=== PATIENT | male | born 1950 | race Caucasian/White ===

== ENCOUNTER 2018-11-28 16:44 | Observation (INO) ==
[2018-11-28] MEDS ORDERED: hydrOXYzine pamoate 25 MG CAPSULE PO ONE (16:59)
[2018-11-28] MEDS ORDERED: Acetaminophen 325 MG TABLET PO ONE (16:59)
--- NOTE | 2018-11-28 16:59 | Emergency Department Note ---
Disposition Clinical Impression: Atrial fibrillation with rapid ventricular response Dyspnea Qualifiers: Dyspnea type: shortness of breath Qualified Code(s): R06.02 - Shortness of breath Disposition: Admitted As Inpatient Condition: Fair SOB HPI - General Chief Complaint: ED Shortness of Breath/Dyspnea Stated Complaint: chills, cant catch his breath Time Seen by Provider: 11/28/18 16:53 Source: patient Mode of arrival: private vehicle Limitations: no limitations Nursing Notes Reviewed: Yes Vital Signs Reviewed: Yes - History of Present Illness Patient relates 4 day or 2 he has had persistent shortness of breath. He describes this as being "a little short winded". Symptoms been worse with laying down. He states if he lays down he feels "like he is smothering". With this he has had some chills and occasional feeling hot. Reports some aches and headaches. He saw his family doctor this morning and was started on azithromycin. He has taken the first 2 tablets. He denies any cough with this. He states that mostly occasionally has "a little chest pain" At This Time. He Denies Any Lower Extremity Swelling or Edema nor Known History of CHF. He Has Not Been Having Diaphoresis or Nausea. Denies a New Jaw, Arm or Back Pain. States He Has Chronic Pain and Difficulty with His Left Arm with Some Cervical Disc Disease for Which She Is Scheduled for Surgery at [facility] This . He Has Been Taken off His Anticoagulants That He Relates he is on Because of His Heart Attacks. He Cannot Recall a History of Irregular Heart Beats. Pt Subjective Complaint: shortness of breath Onset (ago): day(s) Severity: moderate Consistency/Duration: intermittent Improves with: upright position Worsens with: lying flat Known history of: COPD Associated symptoms: Reports: orthopnea. Denies: chest pain, pain with inspiration, fever, cough, wheezing, sputum production, lower extremity pain, polyuria, polydipsia, parasthesias, palpitations, hemoptysis, diaphoresis, nausea/vomiting, syncope, abdominal pain, rash Treatment prior to arrival: other (Azithromycin) Sputum Amount: None - Related Data Home oxygen amount: none Home Medications Medication Instructions Recorded Confirmed Aspirin [Ecotrin] 325 mg PO DAILY 02/12/18 11/28/18 Atorvastatin [Lipitor] 40 mg PO HS 02/12/18 11/28/18 Tizanidine HCl [Zanaflex] 4 mg PO TID 02/12/18 11/28/18 Tramadol HCl [Ultram] 50 mg PO BID PRN 02/12/18 11/28/18 Previous Rx's Medication Instructions Recorded Azithromycin [Zithromax] 250 mg PO DAILY 4 Days #4 tablet 02/13/18 Metoprolol XL (24 HR) Succ [Toprol 12.5 mg PO DAILY 30 Days #15 02/13/18 Xl] tab.er.24h Warfarin [Coumadin] 3 mg PO DAILY 30 Days #30 tablet 02/13/18 predniSONE [PredniSONE] See Taper PO DAILY #15 tablet 02/13/18 Allergies Allergy/AdvReac Type Severity Reaction Status Date / Time levofloxacin [From Levaquin] Allergy Itching Verified 02/13/18 10:10 Penicillins Allergy Anaphylaxis Verified 02/12/18 22:05 All systems ED: reviewed and negative except as stated. Past Medical History - Past Medical History Attestation: Yes The following information was validated with the patient. Source: patient, nursing notes reviewed Medical history: Reports: COPD, coronary artery disease, hyperlipidemia, hypertension, myocardial infarction. Denies: atrial fibrillation Surgical history: Reports: angioplasty/stent Psychiatric history: Reports: no psych history - Social History Smoking Status: Former smoker Smokeless Tobacco Status: No Alcohol use: Reports: none Drug use: Reports: none Physical Exam - General Limitations: no limitations General appearance: alert, in no apparent distress, anxious - Head Head exam: atraumatic, normocephalic, normal inspection - Eye Eye exam: Present: normal appearance, PERRL, EOMI - ENT ENT exam: normal exam, normal oropharynx, mucous membranes moist - Neck Neck exam: Present: normal inspection, full ROM, trachea midline - Chest Chest inspection: Present: normal inspection, symmetric chest wall rise - Respiratory Respiratory exam: Present: normal lung sounds bilaterally. Absent: respiratory distress, wheezes, prolonged expiratory phase - Cardiovascular Cardiovascular exam: Present: regular rate, normal rhythm, normal heart sounds, other (Patient shortly after arrival has demonstrated atrial fibrillation with rapid ventricular response.). Absent: tachycardia - Abdominal Exam Abdominal exam: Present: soft, Non-Tender, normal bowel sounds. Absent: tenderness, distention, guarding, rebound, rigidity - Extremities Exam Extremities exam: Present: normal inspection, full ROM, normal capillary refill. Absent: tenderness, pedal edema, calf tenderness - Expanded Lower Extremity Exam Neurovascular/Tendon exam: Present: normal capillary refill. Absent: motor deficit, sensory deficit, tendon deficit Gait: observed and normal - Back Exam Back exam: Present: normal inspection, full ROM. Absent: tenderness - Neurological Exam Neurological exam: Present: alert, oriented X3 - Psychiatric Psychiatric exam: Present: normal affect, anxious - Skin Skin exam: Present: warm, dry, intact, normal color. Absent: cyanosis, diaphor esis, pallor Course Course Narrative: 1739: The patient has continued now in atrial fibrillation with rapid ventricular response. Actually does not tachycardia during blood draw but he is not settled down in his right and continues at 140-150 bpm. This likely is the cause of his feeling of dyspnea and "smothering with lying down". He nor family can recall a definite history of atrial fibrillation in the past. An IV is being established, additional labs are been ordered and he is written to receive a dose of Cardizem for rate control. 1809: Care has been discussed with Dr. Rodriguez. He is agreeable with continuation of some Cardizem, initiating Lovenox. Patient's heart rate has occasionally gotten to about 120s again and one more additional IV dose will be given as well as Cardizem LA [address] Rodriguez advises he will coordinate further care from the hospital floor. 1839: Patient has continued to rest comfortably. He is currently reverted to a sinus rhythm with a rate of 68. He is resting with a blood pressure 128/69 and an oxygen saturation of 99% on room air. States he has some of his chronic pain in his legs for which she takes tramadol. He has requested and has been given a 50 mg tablet. Vital Signs Temperature 97.3 F L 11/28/18 16:46 Pulse Rate 85 11/28/18 16:46 Respiratory Rate 18 11/28/18 16:46 Blood Pressure 173/90 11/28/18 16:46 O2 Sat by Pulse Oximetry 97 11/28/18 16:46 Temperature 97.3 F L 11/28/18 16:46 Pulse Rate 110 11/28/18 18:22 Respiratory Rate 16 11/28/18 18:22 Blood Pressure 114/90 11/28/18 18:22 O2 Sat by Pulse Oximetry 98 11/28/18 18:22 Oxygen Delivery Oxygen Delivery Room Air Shortness of Breath/Dyspnea - Differential Diagnosis Likely: acute exacerbation of chronic obstructive airways disease - Medical Records Medical records reviewed: Yes I reviewed the patient's medical records. The patient has completed echocardiogram, stress test and preoperative testing at [facility] in the last month for his upcoming cervical procedure. EKG from November 09 demonstrates a normal sinus rhythm with some inferior Q waves present. - Lab Data Lab results reviewed: Yes I reviewed the patient's lab results. Result diagrams: 11/28/18 17:28 11/28/18 17: Lab Results 11/28/18 11/28/18 11/28/18 Range/Units 17:28 17:28 17:28 WBC 9.4 (4.3-11.1) K/mcL RBC 3.89 L (4.19-5.50) M/mcL Hgb 13.6 (12.9-16.9) g/dL Hct 38.8 (37.5-50.1) % MCV 99.7 (83.0-100.0) fL MCH 35.0 H (28.0-33.3) pg MCHC 35.1 (31.6-35.5) g/dL RDW 11.5 (11.5-14.5) % Plt Count 310 (140-400) K/mcL MPV 9.3 L (9.4-12.4) fL Immature Gran % 0.3 (0-4) % Seg Neutrophils % 81.1 % Lymphocytes % 10.9 % Monocytes % 6.5 % Eosinophils % 0.6 % Basophils % 0.6 % Neutrophils # 7.6 (1.6-8.9) K/mcL Lymphocytes # 1.0 (0.6-4.6) K/mcL Monocytes # 0.6 (0.0-1.3) K/mcL Eosinophils # 0.1 (0.0-0.6) K/mcL Basophils # 0.1 (0.0-0.2) K/mcL PT 11.6 (9.4-12.1) Seconds INR 1.0 APTT 31.1 (26.0-36.0) Seconds Sodium 140 (136-145) mEq/L Potassium 3.8 (3.5-5.1) mEq/L Chloride 104 (98-107) mEq/L Carbon Dioxide 29 (23-29) mEq/L BUN 12 (8-23) mg/dL Creatinine 1.16 (0.70-1.30) mg/dL Est GFR ( Amer) > 60 (> 60) Est GFR (Non-Af Amer) > 60 (> 60) BUN/Creatinine Ratio 10 (6-26) Glucose 98 (70-105) mg/dL Calculated Osmolality 290 (280-300) Calcium 9.7 (8.6-10.3) mg/dL Troponin I < 0.03 (< 0.04) ng/mL B-Natriuretic Peptide (Less than 100) pg/mL 11/28/18 Range/Units 17:28 WBC (4.3-11.1) K/mcL RBC (4.19-5.50) M/mcL Hgb (12.9-16.9) g/dL Hct (37.5-50.1) % MCV (83.0-100.0) fL MCH (28.0-33.3) pg MCHC (31.6-35.5) g/dL RDW (11.5-14.5) % Plt Count (140-400) K/mcL MPV (9.4-12.4) fL Immature Gran % (0-4) % Seg Neutrophils % % Lymphocytes % % Monocytes % % Eosinophils % % Basophils % % Neutrophils # (1.6-8.9) K/mcL Lymphocytes # (0.6-4.6) K/mcL Monocytes # (0.0-1.3) K/mcL Eosinophils # (0.0-0.6) K/mcL Basophils # (0.0-0.2) K/mcL PT (9.4-12.1) Seconds INR APTT (26.0-36.0) Seconds Sodium (136-145) mEq/L Potassium (3.5-5.1) mEq/L Chloride (98-107) mEq/L Carbon Dioxide (23-29) mEq/L BUN (8-23) mg/dL Creatinine (0.70-1.30) mg/dL Est GFR ( Amer) (> 60) Est GFR (Non-Af Amer) (> 60) BUN/Creatinine Ratio (6-26) Glucose (70-105) mg/dL Calculated Osmolality (280-300) Calcium (8.6-10.3) mg/dL Troponin I (< 0.04) ng/mL B-Natriuretic Peptide 169 H (Less than 100) pg/mL - Radiology Data Radiology results reviewed: Yes I reviewed the patient's radiology results. Single view chest x-ray is performed. This does not demonstrate evidence for infiltrate, effusion, pneumothorax, foreign body or heart failure. Lungs are hyperexpanded consistent with known COPD. The cardiac silhouette is normal. I do not see abnormality to the osseous structures of the chest. This is on my interpretation. Impressions Chest X-Ray 11/28/18 16:59 IMPRESSION: No acute cardiopulmonary disease. D/ / Garcia Minor MD / Garcia Minor MD Interpreting Provider: Garcia Minor MD - EKG Data EKG attestation: Yes I reviewed and interpreted this EKG. EKG results narrative: Second EKG is performed at 6:41 PM. This shows a normal sinus rhythm with a rate of 69, axis of 84, CA interval of 135 and a QT/QTC of 447/479. There are no ST or T-wave changes to suggest ischemia or infarction. This is on my i nterpretation. EKG shows normal: Reports: QRS complexes Rate: Reports: tachycardia Rhythm: Reports: A.Fib (117) Kirby/QRS: Reports: right axis deviation Interpretation: Reports: no acute changes, nonspecific ST-T wave changes
[2018-11-28 17:37] LABS: Basophils # 0.1 K/mcL (0.0-0.2); Basophils % 0.6 %; Eosinophils # 0.1 K/mcL (0.0-0.6); Eosinophils % 0.6 %; Hematocrit 38.8 % (37.5-50.1); Hemoglobin 13.6 g/dL (12.9-16.9); Immature Granulocytes % 0.3 % (0-4); Lymphocytes % 10.9 %; Mean Corpuscular HGB Conc 35.1 g/dL (31.6-35.5); Mean Corpuscular Volume 99.7 fL (83.0-100.0); Mean Platelet Volume 9.3 fL (9.4-12.4); Monocytes # 0.6 K/mcL (0.0-1.3); Monocytes % 6.5 %; Neutrophils # 7.6 K/mcL (1.6-8.9); Platelet Count 310 K/mcL (140-400); Red Blood Count 3.89 M/mcL (4.19-5.50); Red Cell Distribution Width 11.5 % (11.5-14.5); Segmented Neutrophils % 81.1 %
[2018-11-28] MEDS ORDERED: 0.9 % Sodium Chloride 1,000 ML ONE (17:43)
[2018-11-28] MEDS ORDERED: 0.9 % Sodium Chloride 1,000 ML IVC SCH ×3 (17:45→22:27)
[2018-11-28 17:47] LABS: Prothrombin Time 11.6 Seconds (9.4-12.1)
[2018-11-28 17:49] LABS: Activated Partial Thrombo Time 31.1 Seconds (26.0-36.0)
[2018-11-28 17:56] LABS: BUN/Creatinine Ratio 10 (6-26); Blood Urea Nitrogen 12 mg/dL (8-23); Calcium 9.7 mg/dL (8.6-10.3); Carbon Dioxide 29 mEq/L (23-29); Chloride 104 mEq/L (98-107); Glucose 98 mg/dL (70-105); Osmolality,Calculated 290 (280-300); Potassium 3.8 mEq/L (3.5-5.1); Sodium 140 mEq/L (136-145); Troponin I < 0.03 ng/mL (< 0.04); eGFR For Non-African Americans > 60 (> 60)
[2018-11-28] MEDS ORDERED: *HR* Enoxaparin 80 MG/0.8 ML SYRINGE SQ SCH (18:15)
[2018-11-28] MEDS ORDERED: Diltiazem CD (24hr) 180 MG CAPSULE PO SCH (18:15)
[2018-11-28] MEDS ORDERED: traMADol 50 MG TABLET PO ONE (18:40)
[2018-11-28] MEDS ORDERED: Naloxone 0.4 MG/ML INJ IVP PRN ×2 (21:33→22:27)
[2018-11-28] MEDS ORDERED: traMADol 50 MG TABLET PO PRN ×3 (21:33→22:43)
[2018-11-28] MEDS ORDERED: tiZANidine 4 MG TABLET PO SCH (21:33)
[2018-11-28] MEDS ORDERED: Ibuprofen 600 MG TABLET PO ONE (22:27)
[2018-11-28] MEDS: tiZANidine 4 MG TABLET PO SCH (23:37)
[2018-11-28] MEDS: Gabapentin 400 MG CAPSULE PO SCH (23:37)
[2018-11-29] MEDS ORDERED: *HR* Enoxaparin 80 MG/0.8 ML SYRINGE SQ SCH ×2 (06:00)
[2018-11-29] MEDS ORDERED: Azithromycin 250 MG TABLET PO SCH ×2 (09:00)
[2018-11-29] MEDS ORDERED: Metoprolol XL (24 HR) Succ 25 MG TAB.ER.24H PO SCH ×2 (09:00)
[2018-11-29] MEDS ORDERED: tiZANidine 4 MG TABLET PO SCH (09:00)
[2018-11-29] MEDS ORDERED: Aspirin Enteric Coated 325 MG Tablet PO SCH ×2 (09:00)
[2018-11-29] MEDS ORDERED: Diltiazem CD (24hr) 180 MG CAPSULE PO SCH ×2 (09:00)
[2018-11-29] MEDS: Gabapentin 400 MG CAPSULE PO SCH (10:04)
[2018-11-29] MEDS: tiZANidine 4 MG TABLET PO SCH (10:04)
[2018-11-29 10:36] VITALS: BP 95/56
--- NOTE | 2018-11-29 12:50 | Internal Med History&Physical ---
Date of Encounter: 11/29/18 Time of Encounter: 11:20 Assessment and Plan (1) Atrial fibrillation with rapid ventricular response Current visit: Yes Status: Acute He has converted back to normal sinus rhythm. He is asymptomatic and wishes to be discharged home. Internal Medicine - H&P: HPI Chief complaint: Dyspnea, AF with RVR Admitted From: Emergency Dept Plans for Post Hospital Care: Home History of present illness: Mr. Muñoz is a 68 year old male who came to emergency room stating he had developed increasing dyspnea shortly after returning from his PCP office where he was diagnosed with URI. When dyspnea did not improve after a few hours he came to emergency room and was found to have AF with RVR. He was given Cardizem and [facility]. He had transient AF with RVR during an January 2018 hospitalization at [facility] for exacerbation of COPD. He was placed on Coumadin at the time and has been maintained on Coumadin since then. He stopped the Coumadin a few days ago in preparation for cervical spine surgery scheduled for 11/30/2018. Aspirin was also discontinued preoperatively. He is unaware of other episodes of fibrillation other than the present one and January 2018. Cardiovascular history is pertinent for hypertension and known VT in 2000 and 2017. He reports 4 stents were placed in 2000. A Regadenoson EST 11/02/2018 showed no ischemia on perfusion study and nondiagnostic changes on the EKG portion. He was cleared to proceed with cervical spine surgery. He reports occ asional "tightness" in his chest on exertion. He denies history of DVT or pulmonary emboli. An echocardiogram 02/13/2018 showed LVEF of 60-65%. No significant valvular abnormalities were noted. Atria were not enlarged. He states he feels back to his baseline now and wishes to be discharged home. Past Med Surg Social Fam HX - Past Medical History Medical history: COPD, coronary artery disease, hyperlipidemia, hypertension, m yocardial infarction Psychiatric history: no psych history - Past Surgical History Surgical History: angioplasty/stent - Social History Smoking Status: Former smoker Smokeless Tobacco Status: No Alcohol use: none Drug use: none - Family History Mother Hx Family Cardiac Disorders: Yes Internal Medicine - H&P: Meds Aspirin [Ecotrin] 325 mg PO DAILY 02/12/18 [History] Atorvastatin [Lipitor] 40 mg PO HS 02/12/18 [History] Tizanidine HCl [Zanaflex] 4 mg PO TID 02/12/18 [History] Tramadol HCl [Ultram] 50 mg PO BID PRN 02/12/18 [History] Azithromycin [Zithromax] 250 mg PO DAILY 4 Days #4 tablet 02/13/18 [Rx] Metoprolol XL (24 HR) Succ [Toprol Xl] 12.5 mg PO DAILY 30 Days #15 tab.er.24h 02/13/18 [Rx] Warfarin [Coumadin] 3 mg PO DAILY 30 Days #30 tablet 02/13/18 [Rx] predniSONE [PredniSONE] See Taper PO DAILY #15 tablet 02/13/18 [Rx] Allergy/AdvReac Type Severity Reaction Status Date / Time levofloxacin [From Levaquin] Allergy Itching Verified 11/28/18 21:48 Penicillins Allergy Anaphylaxis Verified 11/28/18 21:48 All Systems PM: A 10-system review of systems was performed and is negative for pertinent findings except as documented above in the HPI. Review of systems: Gen.: He states his weight has been stable for several months Cardiovascular: As per history of present illness Respiratory: He smoked from age [age] never up to one pack per day. He claims a diagnosis of COPD but is uncertain if PFTs been done. He does not use home oxygen. GI: He denies disorders of his liver gallbladder or exocrine pancreas : He denies hematuria dysuria kidney stones Neurologic: He denies large distribution strokes or seizures. Endocrine: He reports hyperlipidemia and occasional episodes of hypoglycemia. He denies diabetes or thyroid disease. Hematology/oncology: He denies blood disorders cancers or anemia Psychiatric: He denies anxiety depression or other mental health issues [place] skeletal: He has cervical spine arthritis with anticipated surgery scheduled for tomorrow as per history of present illness. 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 He denies other bone joint or muscle disorders. - Constitutional Vitals: Temp Pulse Resp BP Pulse Ox 98.1 F 57 16 95/56 96 11/29/18 10:35 11/29/18 10:35 11/29/18 10:35 11/29/18 10:35 11/29/18 10:35 Exam: Gen.: He is a well-developed lean male lying in bed who appears in no acute distress HEENT: Head is atraumatic and normocephalic. Eyes: EOMI. There is no scleral icterus. Mouth: Mucosa is moist. Neck: Supple and nontender. There is no thyromegaly or adenopathy noted. Heart: Regular without murmurs gallops or ectopics Lungs: No wheezes or crackles are heard. Abdomen: Soft and nontender. No masses or guarding are noted. Extremities: There is no edema of his ankles. He has minimal DJD changes of his hands. Neurologic: Mental status: He is talkative and a good historian. Cranial nerves: Smile is symmetric. Forehead wrinkles bilaterally. Tongue protrudes midline. EOMI. 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 The right arm pronates normally. There is no pronator drift. Cerebellar: Finger to nose is intact with right hand. Skin: Warm and dry Internal Med - H&P Results - Labs CBC & Chem 7: 11/28/18 17:28 11/28/18 17:28 Labs: Short CBC 11/28/18 Range/Units 17:28 WBC 9.4 (4.3-11.1) K/mcL Hgb 13.6 (12.9-16.9) g/dL Hct 38.8 (37.5-50.1) % Plt Count 310 (140-400) K/mcL Neutrophils # 7.6 (1.6-8.9) K/mcL BMP 11/28/18 17:28 Sodium 140 Potassium 3.8 Chloride 104 Carbon Dioxide 29 BUN 12 Creatinine 1.16 Glucose 98 Calcium 9.7 Cardiac Enzymes 11/28/18 Range/Units 17:28 Troponin I < 0.03 (< 0.04) ng/mL - Impressions ITS Impressions Chest X-Ray 11/28/18 16:59 IMPRESSION: No acute cardiopulmonary disease. D/ / 11/28/2018 17:32:45 Garcia Minor MD / joanne Interpreting Provider: Garcia Minor MD
--- NOTE | 2018-11-29 14:10 | Discharge Summary ---
Date of Encounter: 11/29/18 Time of Encounter: 11:20 - Discharge Diagnosis (1) Atrial fibrillation with rapid ventricular response Priority: Primary Status: Acute Hospital course: Mr. Muñoz is a 68 year old male male who came to emergency room stating he had developed increasing dyspnea shortly after returning from his PCP office where he was diagnosed with URI. When dyspnea did not improve after a few hours he came to emergency room and was found to have AF with RVR. He was given Cardizem and admitted to [facility] for ongoing care needs. Initial orders were written by the emergency room physician. I saw him on November 29 and performed a history, physical and discharge. He was given diltiazem in emergency room and converted to normal sinus rhythm prior to arrival to [facility]. He maintained NSR during his hospital stay. Blood pressure was borderline low precluding higher dose metoprolol or additional diltiazem. He will be started on Lanoxin for prevention of RVR should he convert back to atrial fibrillation. He will follow with his steel roller postoperatively who can do further evaluation/treatment as needed. I spoke with personnel at his surgeon's office in [place] regarding surgery roman eduled for 11/30/2018. Since he was now back in normal sinus rhythm and asymptomatic they felt he could proceed with surgery tomorrow as scheduled. He will follow with his PCP Saima Aragon CNP in approximately one week. He will follow with his steel roller as directed. - Time Spent with Patient Total time spent providing and/or coordinating discharge services: - Discharge Medications Prescriptions: Digoxin [Lanoxin] 0.125 mg PO DAILY #30 tablet Home Medications: Aspirin [Ecotrin] 325 mg PO DAILY 02/12/18 [History] Atorvastatin [Lipitor] 40 mg PO HS 02/12/18 [History] Tizanidine HCl [Zanaflex] 4 mg PO TID 02/12/18 [History] Tramadol HCl [Ultram] 50 mg PO BID PRN 02/12/18 [History] Metoprolol XL (24 HR) Succ [Toprol Xl] 12.5 mg PO DAILY 30 Days #15 tab.er.24h 02/13/18 [Rx] Warfarin [Coumadin] 3 mg PO DAILY 30 Days #30 tablet 02/13/18 [Rx] Digoxin [Lanoxin] 0.125 mg PO DAILY #30 tablet 11/29/18 [Rx] Allergies/Adverse Reactions: Allergy/AdvReac Type Severity Reaction Status Date / Time levofloxacin [From Levaquin] Allergy Itching Verified 11/28/18 21:48 Penicillins Allergy Anaphylaxis Verified 11/28/18 21:48 Date of admission: 11/28/18 18:22 Primary care physician: Saima Aragon - Constitutional Vitals: Temp Pulse Resp BP Pulse Ox 98.1 F 57 16 95/56 96 11/29/18 10:35 11/29/18 10:35 11/29/18 10:35 11/29/18 10:35 11/29/18 10:35 - Patient Status Disposition: Home, Self-Care Condition: Fair - Discharge Instructions Follow Up With: Saima Aragon, SCHOOL OFFICE ASSISTANT [Primary Care Provider] - 1 week - Diet and Activity Activity: resume usual activities as tolerated Diet: advance to your usual diet
[2018-11-29] MEDS ORDERED: *HR* Digoxin 0.25 MG TABLET PO ONE (14:15)
--- NOTE | 2018-12-02 12:56 | Electrocardiograph Report ---
[place] [id number] Test Date: 2018-11-28 Pat Name: Jeramie Muñoz Department: EDP-16 Room: [facility] Gender: M Welt Rander: : 1950 Requested By: Edwin Roper Order Number: [id number] Reading MD: Shante Jain Measurements Intervals [place] Rate: 117 P: MI: QRS: 89 QRSD: 93 T: -9 QT: 346 QTc: 483 Interpretive Statements Atrial fibrillation Borderline right axis deviation Electronically Signed On 12-02-2018 12:54:26 EST by Shante Jain
--- NOTE | 2018-12-02 12:57 | Electrocardiograph Report ---
[place] [id number] Test Date: 2018-11-28 Pat Name: Jeramie Muñoz Department: EDP-16 Room: [facility] Gender: M Obstetrics Nurse Practitioner: : 1950 Requested By: Edwin Roper Order Number: [id number] Reading MD: Shante Jain Measurements Intervals [place] Rate: 69 P: 73 VT: 135 QRS: 84 QRSD: 96 T: 54 QT: 447 QTc: 479 Interpretive Statements Sinus rhythm Borderline right axis deviation Electronically Signed On 12-02-2018 12:55:55 EST by Shante Jain
== END 2018-11-29 14:40 | disposition home or self-care (01) ==
LOC: EMEROOPIK 16:44 → INPPIK 16:44
PROVIDERS: ADMIT Internal Medicine; ATTEND Internal Medicine

== ENCOUNTER 2021-11-26 11:08 | Inpatient (IN) ==
[2021-11-26] MEDS ORDERED: Azithromycin 500 MG in 0.9 % Sodium Chloride 250 ML IVPB ONE (11:26)
[2021-11-26] MEDS ORDERED: cefTRIAXone 1,000 MG in 0.9 % Sodium Chloride Mini Bag 100 ML IVPB ONE (11:26)
[2021-11-26 11:46] LABS: Basophils # 0.1 K/mcL (0.0-0.2); Basophils % 0.3 %; Eosinophils % 0.1 %; Hemoglobin 12.8 g/dL (12.9-16.9); Immature Granulocytes % 0.3 % (0-4); Lymphocytes # 0.3 K/mcL (0.6-4.6); Lymphocytes % 1.5 %; Mean Corpuscular HGB Conc 33.7 g/dL (31.6-35.5); Mean Corpuscular Hemoglobin 33.3 pg (28.0-33.3); Mean Platelet Volume 9.3 fL (9.4-12.4); Monocytes # 0.8 K/mcL (0.0-1.3); Monocytes % 4.1 %; Platelet Count 362 K/mcL (140-400); Red Blood Count 3.84 M/mcL (4.19-5.50); Red Cell Distribution Width 13.2 % (11.5-14.5); Segmented Neutrophils % 93.7 %; White Blood Count 18.7 K/mcL (4.3-11.1)
[2021-11-26 11:48] LABS: INR 2.6; Prothrombin Time 28.9 Seconds (9.4-12.1)
[2021-11-26 11:49] LABS: Neutrophils # 17.5 K/mcL (1.6-8.9)
[2021-11-26 11:50] LABS: Activated Partial Thrombo Time 37.6 Seconds (26.0-36.0)
[2021-11-26] MEDS: 0.9 % Sodium Chloride 1,000 ML IVC SCH ×3 (11:51→15:40)
[2021-11-26 11:59] LABS: Alanine Aminotransferase 18 Units/L (7-52); Alkaline Phosphatase 96 Units/L (34-104); Aspartate Amino Transferase 20 Units/L (13-39); BUN/Creatinine Ratio 12 (6-26); Bilirubin,Direct 0.1 mg/dL (0.0-0.2); Bilirubin,Indirect 0.9 mg/dL (0.0-1.0); Blood Urea Nitrogen 14 mg/dL (8-23); Calcium 9.2 mg/dL (8.6-10.3); Carbon Dioxide 25 mEq/L (23-29); Chloride 100 mEq/L (98-107); Glucose 112 mg/dL (70-105); Magnesium 1.5 mg/dL (1.6-2.6); Osmolality,Calculated 281 (280-300); Phosphorous 1.5 mg/dL (2.7-4.5); Potassium 3.7 mEq/L (3.5-5.1); Sodium 135 mEq/L (136-145); Total Protein 6.5 g/dL (6.4-8.9); Troponin I < 0.03 ng/mL (< 0.04); eGFR For African Americans > 60 (> 60); eGFR For Non-African Americans > 60 (> 60)
[2021-11-26 12:52] LABS: Albumin 3.7 g/dL (3.5-5.7); Albumin/Globulin Ratio 1.3 (1.1-2.2); Globulin 2.8 g/dL (2.4-3.5)
[2021-11-26] MEDS ORDERED: Naloxone 0.4 MG/ML INJ IVP PRN (13:36)
[2021-11-26] MEDS ORDERED: Acetaminophen 325 MG TABLET PO PRN (13:36)
[2021-11-26] MEDS ORDERED: Ondansetron 4 MG/2 ML VIAL IVP PRN (13:36)
[2021-11-26] MEDS ORDERED: Ipratropium/Albuterol Neb 3 ML IH PRN (13:38)
[2021-11-26] MEDS ORDERED: Ibuprofen 800 MG TABLET PO PRN (14:06)
[2021-11-26] MEDS ORDERED: tiZANidine 4 MG TABLET PO PRN (14:10)
[2021-11-26] MEDS ORDERED: Dextrose Gel 15 GM/37.5 ML TUBE PO PRN ×2 (15:39)
[2021-11-26] MEDS ORDERED: *HR* Dextrose 50 % in Water (Syg) 50 ML SYRINGE IVP PRN (15:39)
[2021-11-26] MEDS ORDERED: D5% in Water 1,000 ML IVC PRN (15:39)
[2021-11-26] MEDS ORDERED: *HR* Warfarin 2.5 MG TABLET PO ONE (18:00)
[2021-11-26] MEDS ORDERED: Warfarin perPT PO PRN (18:00)
[2021-11-26] MEDS: Budesonide/Formoterol 160/4.5 1 PUFF INH IH SCH (21:50)
[2021-11-27] MEDS: 0.9 % Sodium Chloride 1,000 ML IVC SCH (03:48)
[2021-11-27 06:38] LABS: Basophils # 0.1 K/mcL (0.0-0.2); Basophils % 0.3 %; Eosinophils % 0.1 %; Hematocrit 30.8 % (37.5-50.1); Hemoglobin 10.2 g/dL (12.9-16.9); Immature Granulocytes % 0.5 % (0-4); Lymphocytes # 0.6 K/mcL (0.6-4.6); Lymphocytes % 3.4 %; Mean Corpuscular HGB Conc 33.1 g/dL (31.6-35.5); Mean Corpuscular Hemoglobin 33.6 pg (28.0-33.3); Mean Corpuscular Volume 101.3 fL (83.0-100.0); Mean Platelet Volume 9.9 fL (9.4-12.4); Monocytes % 5.6 %; Platelet Count 284 K/mcL (140-400); Red Blood Count 3.04 M/mcL (4.19-5.50); Red Cell Distribution Width 13.4 % (11.5-14.5); Segmented Neutrophils % 90.1 %; White Blood Count 17.7 K/mcL (4.3-11.1)
[2021-11-27 06:57] LABS: Prothrombin Time 33.2 Seconds (9.4-12.1)
[2021-11-27 07:07] LABS: BUN/Creatinine Ratio 14 (6-26); Blood Urea Nitrogen 13 mg/dL (8-23); Calcium 8.1 mg/dL (8.6-10.3); Carbon Dioxide 26 mEq/L (23-29); Chloride 107 mEq/L (98-107); Glucose 79 mg/dL (70-105); Magnesium 1.6 mg/dL (1.6-2.6); Osmolality,Calculated 287 (280-300); Potassium 3.7 mEq/L (3.5-5.1); Sodium 139 mEq/L (136-145); eGFR For African Americans > 60 (> 60); eGFR For Non-African Americans > 60 (> 60)
[2021-11-27] MEDS: *HR* Digoxin 0.125 MG TABLET PO SCH (08:32)
[2021-11-27] MEDS: Aspirin Enteric Coated 325 MG Tablet PO SCH (08:32)
[2021-11-27] MEDS: Loratadine 10 MG TABLET PO SCH (08:33)
[2021-11-27] MEDS: cefTRIAXone 2,000 MG in 0.9 % Sodium Chloride Mini Bag 100 ML IVPB SCH (08:34)
[2021-11-27] MEDS: Azithromycin 500 MG in 0.9 % Sodium Chloride 250 ML IVPB SCH (08:36)
[2021-11-27] MEDS: Budesonide/Formoterol 160/4.5 1 PUFF INH IH SCH ×2 (09:08→21:26)
[2021-11-27] MEDS ORDERED: methylPREDNISolone 125 MG/2 ML VIAL IVP SCH (10:32)
[2021-11-27] MEDS: MethylPREDNISolone 40 MG/ML VIAL IVP SCH ×2 (11:15→16:38)
[2021-11-28] MEDS: MethylPREDNISolone 40 MG/ML VIAL IVP SCH ×2 (00:32→09:47)
[2021-11-28 07:03] LABS: INR 2.4; Prothrombin Time 27.1 Seconds (9.4-12.1)
[2021-11-28 07:41] VITALS: BP 93/57; PULSE 64; TEMP 97.7
[2021-11-28 09:27] LABS: Basophils % 0.1 %; Hemoglobin 10.4 g/dL (12.9-16.9); Immature Granulocytes % 0.8 % (0-4); Lymphocytes # 0.3 K/mcL (0.6-4.6); Lymphocytes % 1.5 %; Mean Corpuscular HGB Conc 33.5 g/dL (31.6-35.5); Mean Corpuscular Hemoglobin 33.5 pg (28.0-33.3); Mean Platelet Volume 9.7 fL (9.4-12.4); Monocytes # 0.4 K/mcL (0.0-1.3); Monocytes % 2.1 %; Neutrophils # 18.3 K/mcL (1.6-8.9); Platelet Count 320 K/mcL (140-400); Red Cell Distribution Width 13.2 % (11.5-14.5); Segmented Neutrophils % 95.5 %; White Blood Count 19.2 K/mcL (4.3-11.1)
[2021-11-28 09:46] LABS: BUN/Creatinine Ratio 16 (6-26); Blood Urea Nitrogen 14 mg/dL (8-23); Calcium 8.5 mg/dL (8.6-10.3); Carbon Dioxide 24 mEq/L (23-29); Chloride 105 mEq/L (98-107); Glucose 127 mg/dL (70-105); Osmolality,Calculated 284 (280-300); Potassium 3.6 mEq/L (3.5-5.1); Sodium 136 mEq/L (136-145); eGFR For African Americans > 60 (> 60); eGFR For Non-African Americans > 60 (> 60)
[2021-11-28] MEDS: cefTRIAXone 2,000 MG in 0.9 % Sodium Chloride Mini Bag 100 ML IVPB SCH (09:46)
[2021-11-28] MEDS: Azithromycin 500 MG in 0.9 % Sodium Chloride 250 ML IVPB SCH (09:47)
[2021-11-28] MEDS: Aspirin Enteric Coated 325 MG Tablet PO SCH (09:48)
[2021-11-28] MEDS: Loratadine 10 MG TABLET PO SCH (09:48)
[2021-11-28] MEDS: *HR* Digoxin 0.125 MG TABLET PO SCH (09:48)
[2021-11-28] MEDS: Budesonide/Formoterol 160/4.5 1 PUFF INH IH SCH (10:29)
[2021-11-28 11:28] VITALS: RESP 18; O2SAT 99
[2021-11-28] MEDS ORDERED: *HR* Warfarin 1 MG TABLET PO ONE (18:00)
== END 2021-11-28 11:50 | disposition home or self-care (01) | DRG 871 ==
LOC: INPPIK 11:08 → EMEROOPIK 11:08 → INPPIK 14:14
PROVIDERS: ADMIT Nurse Practitioner Family; ATTEND Nurse Practitioner Family